=== PATIENT | female | born 1995 | race Caucasian/White ===

== ENCOUNTER → 2023-07-20 08:00 | Outpatient (REF) | payer BC, SELFPAY | LOC: HWRAD 08:00 | PROVIDERS: ATTENDING PHYSICIAN Student in an Organized Health Care Education/Training Program | DX: Z85.850 Personal history of malignant neoplasm of thyroid (principal); E04.1 Nontoxic single thyroid nodule | CPT/HCPCS: 76536 ==

== ENCOUNTER → 2023-09-01 11:41 | Outpatient (REF) | payer BC, SELFPAY | LOC: HWRAD 11:41 | PROVIDERS: ATTENDING PHYSICIAN Student in an Organized Health Care Education/Training Program | DX: M25.552 Pain in left hip (principal) | CPT/HCPCS: 73502 ==

== ENCOUNTER → 2024-02-02 14:56 | Outpatient (REF) | payer BC, SELFPAY | LOC: HWRAD 14:56 | PROVIDERS: ATTENDING PHYSICIAN Surgery; FAMILY PHYSICIAN Nurse Practitioner Family | DX: E04.1 Nontoxic single thyroid nodule (principal) | CPT/HCPCS: 70491; Q9967 ==

== ENCOUNTER → 2024-08-08 14:42 | Outpatient (REF) | payer OTHER, SELFPAY | LOC: HWRAD 14:42 | PROVIDERS: ATTENDING PHYSICIAN Emergency Medicine | DX: M54.2 Cervicalgia (principal); E04.1 Nontoxic single thyroid nodule | CPT/HCPCS: 76536 ==

== ENCOUNTER → 2024-11-28 11:17 | Outpatient (REF) | payer OTHER, SELFPAY | LOC: RAD 11:17 | PROVIDERS: ATTENDING PHYSICIAN Nurse Practitioner Family; FAMILY PHYSICIAN Emergency Medicine | DX: C73 Malignant neoplasm of thyroid gland (principal) | CPT/HCPCS: 70491; Q9967 ==